=== PATIENT | male | born 1960 | race Caucasian/White ===

== ENCOUNTER 2018-09-05 19:50 | Emergency (ER) | payer MEDICAID ==
[~2018-09-05] VITALS: Ht 177.8 cm; Wt 77.1 kg
[2018-09-05 20:19] VITALS: BP 115/77
[2018-09-05] MEDS ORDERED: HYDROCODONE/APAP 10/325MG 1 EA TABLET PO ONE (22:30)
[2018-09-05] MEDS ORDERED: HYDROCODONE/APAP 10/325MG 1 EA TABLET ONE (22:36)
== END 2018-09-06 00:14 | disposition home or self-care (01) ==
LOC: ER 19:54
DX: M19.042 Primary osteoarthritis, left hand (principal); G89.29 Other chronic pain; M25.512 Pain in left shoulder; I11.0 Hypertensive heart disease with heart failure; I50.9 Heart failure, unspecified; F41.9 Anxiety disorder, unspecified; Z95.0 Presence of cardiac pacemaker; Z98.890 Other specified postprocedural states; Z88.0 Allergy status to penicillin; Z60.2 Problems related to living alone
CPT/HCPCS: 73030-TC; 73130-TC